=== PATIENT | female | born 1950 ===

== ENCOUNTER 2016-08-19 17:26 | Emergency (ER) | payer OTHER ==
[2016-08-19 17:36] VITALS: BP 140/88; PULSE 68; RESP 20; TEMP 98.5; O2SAT 98
[2016-08-19] MEDS ORDERED: Sodium Chloride 0.9% 1,000 ML IV STA (17:43)
--- NOTE | 2016-08-19 17:46 | ED PDOC ---
HPI: General Adult Time Seen by Provider: 08/19/16 17:44 Chief Complaint (Nursing): Abnormal Skin Integrity Chief Complaint (Provider): weakness History Per: Patient (66 y/o female h/o DM here for evaluation of shaking/ possible hypothermia. Patient was caught in rain and sought halfway in [place]. Was noted shivering and feeling unwell. Patient states symptoms began only after in AC room. Denies any chest pain/abdominal pain. Has had no fever/chills/uri/cough prior to episode today.) Past Medical History Reviewed: Historical Data, Nursing Documentation, Vital Signs Vital Signs: Last Vital Signs Temp 98.5 F 08/19/16 17:33 Pulse 68 08/19/16 17:33 Resp 20 08/19/16 17:33 BP 140/88 08/19/16 17:33 Pulse Ox 98 08/19/16 17:46 - Medical History PMH: Diabetes, Migraine - Family History Family History: States: No Known Family Hx - Home Medications Home Medications: Ambulatory Orders Medication Instructions Recorded Ondansetron ODT [Zofran ODT] 4 mg PO Q8 PRN #12 odt 05/01/15 - Allergies Allergies/Adverse Reactions: Allergies Allergy/AdvReac Type Severity Reaction Status Date / Time No Known Allergies Allergy Verified 08/19/16 17:32 Review of Systems ROS Statement: Except As Marked, All Systems Reviewed And Found Negative Physical Exam - Reviewed Nursing Documentation Reviewed: Yes Vital Signs Reviewed: Yes - Physical Exam Appears: Positive for: Well, Non-toxic, No Acute Distress Head Exam: Positive for: ATRAUMATIC, NORMAL INSPECTION, NORMOCEPHALIC Skin: Positive for: Normal Color, Warm, DRY Eye Exam: Positive for: EOMI, Normal appearance, PERRL ENT: Positive for: Normal ENT Inspection Neck: Positive for: Normal, Painless ROM Cardiovascular/Chest: Positive for: Regular Rate, Rhythm Respiratory: Positive for: CNT, Normal Breath Sounds Gastrointestinal/Abdominal: Positive for: Normal Exam, Bowel Sounds, Soft Back: Positive for: Normal Inspection Extremity: Positive for: Normal ROM Neurologic/Psych: Positive for: Alert, Oriented - Laboratory Results Result Diagrams: 08/19/16 18:53 08/19/16 18:53 - ECG O2 Sat by Pulse Oximetry: 98 - Progress ED Course And Treament: Rectal temp 99.0 Warm blankets/wet clothes removed. BS 345 NS 1 liter administered Disposition - Clinical Impression Clinical Impression: Hyperglycemia - Patient ED Disposition Is Patient to be Admitted: Transfer of Care - Disposition Disposition: Transfer of Care Disposition Time: 20:07 Condition: FAIR Instructions: Diabetic Hyperglycemia (ED) Print Language: TAJIK Patient Signed Over To: Micaela Shane Handoff Comments: pending repeat accucheck after insulin
[2016-08-19 19:01] LABS: BASO # 0.1 K/uL (0.0-0.2); BASO % 1.1 % (0.0-2.0); EOS # 0.2 K/uL (0.0-0.7); EOS % 2.7 % (0.0-4.0); HEMATOCRIT 38.5 % (34.0-47.0); LYMPH # 2.8 K/uL (1.0-4.3); LYMPH % 33.3 % (20.0-40.0); MEAN CELL VOLUME 94.1 fl (81.0-99.0); MEAN CORPUSCULAR HEMOGLOBIN 31.2 pg (27.0-31.0); MEAN CORPUSCULAR HGB CONC 33.2 g/dL (33.0-37.0); MEAN PLATELET VOLUME 9.1 fl (7.2-11.7); MONO # 1.2 K/uL (0.0-0.8); MONO % 14.7 % (0.0-10.0); NEUT % 48.2 % (50.0-75.0); NRBC % 0.1 % (0.0-0.0); RED CELL DISTRIBUTION WIDTH 13.3 % (11.5-14.5); WHITE BLOOD COUNT 8.4 K/uL (4.8-10.8)
[2016-08-19 19:10] LABS: ALB/GLOB RATIO 1.3 (1.0-2.1); ALKALINE PHOSPHATASE 120 U/L (38-126); ALT/SGPT 36 U/L (9-52); AST/SGOT 27 U/L (14-36); BILIRUBIN,TOTAL 0.4 mg/dl (0.2-1.3); BLOOD UREA NITROGEN 22 mg/dl (7-17); CALCIUM 9.1 mg/dL (8.4-10.2); CARBON DIOXIDE 28 mmol/L (22-30); CHLORIDE 102 mmol/L (98-107); GFR AFRICAN-AMERICAN > 60; GLUCOSE,RANDOM 305 mg/dL (65-105); POTASSIUM 4.3 MMOL/L (3.6-5.0); SODIUM 139 mmol/l (132-148); TOTAL PROTEIN 7.1 G/DL (6.3-8.2)
[2016-08-19 19:27] LABS: RBC URINE 1 /hpf (0-3); URINE BILIRUBIN NEGATIVE (NEGATIVE); URINE BLOOD NEGATIVE (NEGATIVE); URINE COLOR YELLOW (YELLOW); URINE GLUCOSE (UA) >=500 mg/dL (Normal); URINE KETONE NEGATIVE (NEGATIVE); URINE LEUKOCYTE ESTERASE NEG Leu/uL (Negative); URINE PROTEIN NEGATIVE (NEGATIVE); URINE UROBILINOGEN 0.2-1.0 mg/dL (0.2-1.0); WBC URINE 1 /hpf (0-5)
[2016-08-19] MEDS ORDERED: Insulin Regular 100 units/ml IVP ONE (20:07)
[2016-08-19] MEDS ORDERED: Insulin Regular 100 units/ml ONE (20:08)
--- NOTE | 2016-08-19 21:14 | ED PDOC ---
- Laboratory Results Result Diagrams: 08/19/16 18:53 08/19/16 18:53 - ECG O2 Sat by Pulse Oximetry: 98 - Progress ED Course And Treament: Case endorsed to expert medical writer from Demetrius PETER pending repeat accucheck after IV fluids , IV insulin Repeat accucheck 286. Patient admits to improvement of symptoms since arrival to ED. Patient discharged with instructions to follow up PMD 2-3 days. Return to ED for worsening/concerning symptoms. Disposition - Clinical Impression Clinical Impression: Hyperglycemia - POA Present On Arrival: None - Disposition Disposition: Routine/Home Disposition Time: 21:15 Condition: IMPROVED Instructions: Diabetic Hyperglycemia (ED) Print Language: ARABIC
--- NOTE | 2016-08-19 23:18 | CARD ---
APPROVED REPORT EKG Measurement Heart [id number] <Conclusion> Poor data quality, interpretation may be adversely affected Sinus bradycardia Otherwise normal ECG
== END 2016-08-19 20:02 | disposition home or self-care (01) ==
LOC: H.ER 17:26
DX: R73.9 Hyperglycemia, unspecified (principal); E11.9 Type 2 diabetes mellitus without complications

== ENCOUNTER 2016-11-10 11:36 | Observation (INO) | payer OTHER ==
[2016-11-10 11:55] VITALS: BMI 21.7
--- NOTE | 2016-11-10 12:40 | ED PDOC ---
Upper Extremity Pain/Injury Time Seen by Provider: 11/10/16 11:36 Chief Complaint (Nursing): Abnormal Skin Integrity Chief Complaint (Provider): Abnormal Skin Integrity History Per: Patient History/Exam Limitations: no limitations Onset/Duration Of Symptoms: Mins (prior to arrival) Current Symptoms Are (Timing): Still Present Additional Complaint(s): Drake Mccray is a 66 year old female, right-hand dominant, who presents to the emergency department for an evaluation of left hand injury status post puncture by needle of sewing machine prior to arrival. Patient denied any pain or active bleeding but concerned because of deep penetration of needle. Tetanus vaccinations are not up-to-date. PMD: Alphonse Ramirez MD Past Medical History Reviewed: Historical Data, Nursing Documentation, Vital Signs Vital Signs: Last Vital Signs Temp 97.6 F 11/10/16 11:53 Pulse 64 11/10/16 11:53 Resp 16 11/10/16 11:53 BP 131/76 11/10/16 11:53 Pulse Ox 98 11/10/16 11:53 - Medical History PMH: Diabetes, Migraine - Family History Family History: States: Unknown Family Hx - Social History Current smoker - smoking cessation education provided: No Alcohol: None Drugs: Denies - Home Medications Home Medications: Ambulatory Orders Medication Instructions Recorded Ondansetron ODT [Zofran ODT] 4 mg PO Q8 PRN #12 odt 05/01/15 Dicloxacillin [Dynapen] 1 tab PO QID #20 cap 11/10/16 - Allergies Allergies/Adverse Reactions: Allergies Allergy/AdvReac Type Severity Reaction Status Date / Time No Known Allergies Allergy Verified 11/10/16 12:03 Review of Systems ROS Statement: Except As Marked, All Systems Reviewed And Found Negative Musculoskeletal: Negative for: Hand Pain, Other (active bleeding) Skin: Positive for: Other (right hand puncture) Physical Exam - Reviewed Nursing Documentation Reviewed: Yes Vital Signs Reviewed: Yes - Physical Exam Appears: Positive for: Well, Non-toxic, No Acute Distress Head Exam: Positive for: ATRAUMATIC, NORMAL INSPECTION, NORMOCEPHALIC Cardiovascular/Chest: Positive for: Regular Rate, Rhythm Respiratory: Positive for: Normal Breath Sounds. Negative for: Decreased Breath Sounds, Respiratory Distress Extremity: Positive for: Normal ROM (right hand, all digits), Other (small right hand puncture wound). Negative for: Tenderness, Swelling Neurologic/Psych: Positive for: Alert, sleeper cutter II-XII, Oriented - Laboratory Results Result Diagrams: 11/10/16 13:50 11/10/16 13:50 - ECG O2 Sat by Pulse Oximetry: 98 (RA) Pulse Ox Interpretation: Normal - Progress ED Course And Treament: TDAP 0.5 ML IM X 1 DOSE HAND XRY: NO ACUTE FX CALLED TO BEDSIDE FOR NEAR SYNCOPE. PATIENT NOTES LEFT ARM ACHY SENSATION PULSE RATE NOTED 43 EKG: SINUS BRADYCARDIA 52BPM NO ECTOPY; NO ACUTE CHANGES HEAD CT: NAD CXR: NAD NS 1 LITER ZOFRAN 4 MG IV X 1 DOSE ARM PAIN RESOLVED. IN ED. D/W COMPUTER LAB ASSISTANT FOR ADMISSION OBSERVATION Medical Decision Making Medical Decision Making: Initial Impression: Left hand injury Initial Plan: * Adacel 0.5ml * Xray hand (left) Time: 1302 --Xray hand FINDINGS: BONES: Normal. No fracture. JOINTS: Normal. No osteoarthritic changes. SOFT TISSUES: Normal. OTHER FINDINGS: None. IMPRESSION: Normal left hand radiographs. Time: 1305 --Upon discharge, patient stated she feels dizzy and "might pass out". Reported vomiting this morning and general sickness. --EKG and Accucheck ordered. Time: 1315 --Accu-chek: 145 --Ordered: * CT head without contrast * CMP * Magnesium * Troponin I * CBC * CXR * NS 1,000ml IV per 500mls/hr * Zofran 4mg IVP * Urinalysis Scribe Attestation: Documented by Letty Noble, acting as a scribe for Johnna Romo PA-C. Provider Scribe Attestation: All medical record entries made by the Scribe were at my direction and personally dictated by me. I have reviewed the chart and agree that the record accurately reflects my personal performance of the history, physical exam, medical decision making, and the department course for this patient. I have also personally directed, reviewed, and agree with the discharge instructions and disposition. Disposition - Clinical Impression Clinical Impression: Puncture wound, Symptomatic bradycardia - Patient ED Disposition Is Patient to be Admitted: Yes Counseled Patient/Family Regarding: Studies Performed, Diagnosis, Rx Given - Disposition Disposition Time: 16:48 Condition: FAIR Prescriptions: Dicloxacillin [Dynapen] 1 tab PO QID #20 cap Instructions: Puncture Wound (ED), Bradycardia (ED), Near Syncope (ED) Forms: [facility] (Urdu)
--- NOTE | 2016-11-10 13:03 | RAD ---
PROCEDURE: Left Hand Radiographs. HISTORY: hand injury COMPARISON: None. FINDINGS: BONES: Normal. No fracture. JOINTS: Normal. No osteoarthritic changes. SOFT TISSUES: Normal. OTHER FINDINGS: None. IMPRESSION: Normal left hand radiographs.
[2016-11-10] MEDS ORDERED: Sodium Chloride 0.9% 1,000 ML IV STA (13:17)
[2016-11-10 13:57] LABS: BASO # 0.1 K/uL (0.0-0.2); BASO % 0.8 % (0.0-2.0); EOS # 0.1 K/uL (0.0-0.7); EOS % 1.5 % (0.0-4.0); HEMATOCRIT 42.5 % (34.0-47.0); LYMPH # 2.5 K/uL (1.0-4.3); LYMPH % 36.7 % (20.0-40.0); MEAN CELL VOLUME 94.1 fl (81.0-99.0); MEAN CORPUSCULAR HEMOGLOBIN 31.3 pg (27.0-31.0); MEAN CORPUSCULAR HGB CONC 33.2 g/dL (33.0-37.0); MEAN PLATELET VOLUME 8.6 fl (7.2-11.7); MONO # 0.8 K/uL (0.0-0.8); MONO % 11.1 % (0.0-10.0); NEUT # 3.5 K/uL (1.8-7.0); NEUT % 49.9 % (50.0-75.0); NRBC % 0.1 % (0.0-0.0); RED CELL DISTRIBUTION WIDTH 13.2 % (11.5-14.5); WHITE BLOOD COUNT 6.9 K/uL (4.8-10.8)
--- NOTE | 2016-11-10 14:10 | CT ---
PROCEDURE: CT HEAD WITHOUT CONTRAST. HISTORY: near syncope COMPARISON: None available. TECHNIQUE: Axial computed tomography images were obtained through the head/brain without intravenous contrast. Radiation dose: Total exam DLP = 804.50 mGy-cm. This CT exam was performed using one or more of the following dose reduction techniques: Automated exposure control, adjustment of the mA and/or kV according to patient size, and/or use of iterative reconstruction technique. FINDINGS: HEMORRHAGE: No intracranial hemorrhage. BRAIN: No mass effect or edema. No atrophy or chronic microvascular ischemic changes. VENTRICLES: Unremarkable. No hydrocephalus. CALVARIUM: Unremarkable. PARANASAL SINUSES: Unremarkable as visualized. No significant inflammatory changes. MASTOID AIR CELLS: Unremarkable as visualized. No inflammatory changes. OTHER FINDINGS: None. IMPRESSION: No acute intracranial abnormalities. No significant findings to account for the clinical presentation.
--- NOTE | 2016-11-10 14:11 | RAD ---
HISTORY: Left hand pain. Portable study 13:30. COMPARISON: 11/10/2012 FINDINGS: LUNGS: No active pulmonary disease. PLEURA: No significant pleural effusion identified, no pneumothorax apparent. CARDIOVASCULAR: No radiographic findings to suggest acute or significant cardiovascular disease. OSSEOUS STRUCTURES: No significant abnormalities. VISUALIZED UPPER ABDOMEN: Normal. OTHER FINDINGS: None. IMPRESSION: No active disease. No significant interval change compared to the prior examination(s).
[2016-11-10 14:18] LABS: ALB/GLOB RATIO 1.4 (1.0-2.1); ALKALINE PHOSPHATASE 93 U/L (38-126); ALT/SGPT 30 U/L (9-52); AST/SGOT 32 U/L (14-36); BLOOD UREA NITROGEN 17 mg/dl (7-17); CALCIUM 10.4 mg/dL (8.4-10.2); CARBON DIOXIDE 31 mmol/L (22-30); CHLORIDE 101 mmol/L (98-107); GFR AFRICAN-AMERICAN > 60; GLUCOSE,RANDOM 143 mg/dL (65-105); MAGNESIUM 1.9 MG/DL (1.6-2.3); POTASSIUM 4.1 MMOL/L (3.6-5.0); SODIUM 142 mmol/l (132-148); TOTAL PROTEIN 8.3 G/DL (6.3-8.2)
[2016-11-10 18:10] LABS: RBC URINE < 1 /hpf (0-3); URINE BILIRUBIN NEGATIVE (NEGATIVE); URINE BLOOD NEGATIVE (NEGATIVE); URINE COLOR YELLOW (YELLOW); URINE GLUCOSE (UA) NEG (Normal); URINE KETONE NEGATIVE (NEGATIVE); URINE LEUKOCYTE ESTERASE NEG Leu/uL (Negative); URINE PROTEIN NEGATIVE (NEGATIVE); URINE UROBILINOGEN 0.2-1.0 mg/dL (0.2-1.0)
--- NOTE | 2016-11-10 18:10 | CP.PCM.HP ---
History of Present Illness - History of Present Illness History of Present Illness: 66 yr old F with PMHx of NIDDM Type 2, Depression, chronic left knee/left hip and low back pain, vertigo and recent H. Pylori infection presented to ED with complaint intermittent dizziness throughout the day and for the past couple of months intermittently. The dizziness occurs when she stands up too fast from a seated position or when she moves too fast. Patient reports she feels her head spins around during these episodes, and they resolve with rest. Denies chest pain, sweating, nausea, fevers, chills, visual changes, falls or weakness. Had one episode of vomiting this AM immediately after breakfast. Only took her Metformin today. Started tx for H. Pylori infection 3 days ago. Reports compliance with her medications, does not have PRN medication for vertigo at home. Patient also had complaint of a needle piercing her left palm while attempting to use the sewing machine this AM. PMD: Dr. Ramirez Specialists: Dr. Munson-; Audrey Aranda-[facility] PMHx: NIDDM Type 2, Depression, chronic left knee/left hip and low back pain, vertigo and recent H. Pylori infection SurgHx: total abd hysterectomy SocHx: denies Etoh, drugs or smoking FMHx: mother had HTN, of [place] at 98yrs old; Father had HTN- of [place] at 80 yrs old Meds: Glipizide 5mg PO QD, Metformin 100mg PO BID, Basaglar Kwikpen insulin 16units QHS, Citalopram 10mg PO QD, Clarithromycin 500mg PO Q12, Amoxicillin 500mg PO Q12, Prilosec 20mg PO BID Allergies: NKDA ED Course: BP 131/76 mmHg, P64, R16, O2 100% on room air, T 97.6F -in ED HR oscillated between 40's - 80's, patients' intermittent dizziness persisted -EKG: sinus bradycardia , HR 52 -CXR wnl, Head CT wnl, Left hand xray wnl -Labs: POC glucose 106 mg/dl, CBC wnl, CMP HCO3 31, rest wnl, troponin negative x 1, UA negative -ED tx: 1L NS bolus, 4mg Zofran IV once, Tdap booster Present on Admission - Present on Admission Any Indicators Present on Admission: Yes History of DVT/PE: No History of Uncontrolled Diabetes: Yes Urinary Catheter: No Decubitus Ulcer Present: No Review of Systems - Review of Systems All systems: reviewed and no additional remarkable complaints except (for what is mentioned in the HPI) Past Patient History - Past Social History Alcohol: None Drugs: Denies - NEUROLOGICAL Hx Migraine: Yes - ENDOCRINE/METABOLIC Hx Diabetes Mellitus Type 2: Yes - PSYCHIATRIC Hx Substance Use: No - ANESTHESIA Hx Anesthesia: No Meds Allergies/Adverse Reactions: Allergies Allergy/AdvReac Type Severity Reaction Status Date / Time No Known Allergies Allergy Verified 11/10/16 12:03 Physical Exam - Constitutional Appears: No Acute Distress - Head Exam Head Exam: ATRAUMATIC, NORMOCEPHALIC - Eye Exam Eye Exam: EOMI, PERRL - ENT Exam ENT Exam: Mucous Membranes Moist - Neck Exam Neck exam: Positive for: Full Rom. Negative for: Lymphadenopathy, Meningismus - Respiratory Exam Respiratory Exam: Clear to Auscultation Bilateral, NORMAL BREATHING PATTERN - Cardiovascular Exam Cardiovascular Exam: REGULAR RHYTHM, +S1, +S2 - GI/Abdominal Exam GI & Abdominal Exam: Normal Bowel Sounds, Soft. absent: Tenderness - Extremities Exam Extremities exam: Positive for: full ROM, normal capillary refill, pedal pulses present. Negative for: pedal edema - Back Exam Back exam: absent: CVA tenderness (L), CVA tenderness (R) - Neurological Exam Neurological exam: Alert, CN II-XII Intact, Oriented x3 (positive right- Benson Leon Dover maneuver ) - Skin Skin Exam: Dry, Normal Color, Warm Results - Vital Signs Recent Vital Signs: Last Vital Signs Temp 98 F 11/10/16 18:00 Pulse 82 11/10/16 18:00 Resp 16 11/10/16 18:00 BP 116/68 11/10/16 18:00 Pulse Ox 99 11/10/16 18:00 - Labs Result Diagrams: 11/10/16 13:50 11/10/16 13:50 Assessment & Plan - Assessment and Plan (Free Text) Assessment: 66 yr old F with PMHx of NIDDM Type 2, Depression, chronic left knee/left hip and low back pain, vertigo and recent H. Pylori infection, admitted for recurrent intermittent dizziness and bradycardia. Plan: 1. Recurrent Intermittent Dizziness -Symptomatic Bradycardia vs Benign Positional Paroxysmal Vertigo -EKG: sinus bradycardia -CT head wnl, CXR wnl, troponin neg x 1, CBC wnl, CMP HCO3 31-rest wnl -admit to tele -f/u EKG in AM, CBC, CMP, TSH, folate, B12 -f/u Cardiology consult-Dr. Chang -consider Neurology consult 2. NIDDM Type 2- uncontrolled -HbA1c 9.8 on 11/01/16 -f/u lipid panel -continue home med Glipizide 5mg PO QD, hold Metformin 1000mg PO BID -regular Insulin low dose coverage scale ACHS -hypoglycemia protocol 3. Depression -chronic, controlled -continue with home med Citalopram 10mg PO QD 4. H. Pylori infection -stool positive 10/08/16, pt started tx 3 days ago -continue home med: Clarithromycin 500mg PO Q12, Amoxicillin 500mg PO Q12, Prilosec 20mg PO BID 5. DVT prophylaxis -Lovenox 40mg SC QD, SCD's PRN - Date & Time Date: 11/10/16 Time: 17:00
[2016-11-10] MEDS ORDERED: Glucagon Recombinant 1 mg Inj IM PRN (20:23)
[2016-11-10] MEDS ORDERED: Dextrose 50% SYRINGE Inj (50 ml) IV PRN (20:23)
[2016-11-10] MEDS ORDERED: Pantoprazole 40 mg EC Tab PO SCH (20:45)
[2016-11-10] MEDS: Pantoprazole 40 mg EC Tab PO SCH (21:30)
[2016-11-10] MEDS: Insulin Regular 100 units/ml SC SCH (21:40)
[2016-11-11 06:26] LABS: MEAN CELL VOLUME 94.1 fl (81.0-99.0); MEAN CORPUSCULAR HEMOGLOBIN 31.1 pg (27.0-31.0); MEAN CORPUSCULAR HGB CONC 33.1 g/dL (33.0-37.0); WHITE BLOOD COUNT 9.1 K/uL (4.8-10.8)
[2016-11-11] MEDS ORDERED: Pneumococcal 23-Valent Vaccine IM ONE (06:30)
[2016-11-11 06:36] LABS: BLOOD UREA NITROGEN 18 mg/dl (7-17); CALCIUM 9.7 mg/dL (8.4-10.2); CARBON DIOXIDE 28 mmol/L (22-30); CHLORIDE 102 mmol/L (98-107); CHOLESTEROL 125 mg/dL (0-199); GFR AFRICAN-AMERICAN > 60; GLUCOSE,RANDOM 131 mg/dL (65-105); POTASSIUM 4.8 MMOL/L (3.6-5.0); SODIUM 140 mmol/l (132-148)
[2016-11-11 07:07] LABS: THYROID STIMULATING HORMONE 3.51 mIU/ML (0.46-4.68)
--- NOTE | 2016-11-11 08:01 | CARD ---
APPROVED REPORT EKG Measurement Heart [id number] <Conclusion> Sinus bradycardia Otherwise normal ECG
[2016-11-11] MEDS: Pantoprazole 40 mg EC Tab PO SCH ×2 (08:58→17:37)
[2016-11-11] MEDS ORDERED: Enoxaparin 40 mg Syringe SC SCH (09:00)
[2016-11-11] MEDS: Insulin Regular 100 units/ml SC SCH ×3 (09:00→17:36)
--- NOTE | 2016-11-11 10:19 | CP.PCM.CON ---
History of Present Illness - History of Present Illness History of Present Illness: this 66- year-old female who has been a diabetic for over 30 years came to the emergency room after feeling dizzy following being struck in the left hand with a needle while trying to sew a garment. The patient describes having had lightheaded spells for number of months and these are particularly pronounced on abruptly standing up or abruptly moving. There has never been a syncopal episode. She denies any palpitations. She denies any chest pains or myocardial infarction or symptoms of congestive cardiac failure. She has never been a smoker and denies any history of hypertension. She denies any ringing in the ear or loss of hearing. Physical examination shows an elderly pleasant female who is comfortable while lying in bed. Review of her telemetry shows steady sinus rhythm at physiological rates, going down to mid 50s during sleep. Her blood pressure was 124/70 mmHg while lying down and did not show any orthostatic changes. Her blood pressure upon sitting up and standing up. Abruptly standing up did produce a mild sense of lightheadedness. Her apex was in the fifth space. The first and second heart sounds are normal. There was no murmur or gallop. Her pedal pulses were well felt. Her jugular venous pressure was not elevated and there was no edema hour low extremity. There were no carotid bruits. Her electrocardiogram showed sinus rhythm with a normal EKG pattern. Her lab data was noted. Impression:vertigo possibly secondary to vestibular dysfunction. No evidence of cardiovascular abnormality was detected. Past Patient History - Past Medical History & Family History Past Medical History?: Yes - Past Social History Smoking Status: Never Smoked - CARDIAC Hx Cardiac Disorders: No - PULMONARY Hx Respiratory Disorders: No - NEUROLOGICAL Hx Migraine: Yes - HEENT Hx HEENT Problems: Yes (cataract) Hx Cataracts: Yes - RENAL Hx Chronic Kidney Disease: No - ENDOCRINE/METABOLIC Hx Diabetes Mellitus Type 2: Yes - HEMATOLOGICAL/ONCOLOGICAL Hx Blood Disorders: No - INTEGUMENTARY Hx Dermatological Problems: No - MUSCULOSKELETAL/RHEUMATOLOGICAL Hx Musculoskeletal Disorders: No Hx Falls: No - GASTROINTESTINAL Other/Comment: H.Pylori infection - GENITOURINARY/GYNECOLOGICAL Hx Genitourinary Disorders: No - PSYCHIATRIC Hx Psychophysiologic Disorder: No Hx Substance Use: No - SURGICAL HISTORY Hx Surgeries: No Hx Hysterectomy: Yes - ANESTHESIA Hx Anesthesia: Yes Hx Anesthesia Reactions: No Meds Allergies/Adverse Reactions: Allergies Allergy/AdvReac Type Severity Reaction Status Date / Time No Known Allergies Allergy Verified 11/10/16 12:03 - Medications Medications: Current Medications Amoxicillin (Amoxil 500 Mg Cap) 500 mg PO Q12 [facility] Last Admin: 11/11/16 08:59 Dose: 500 mg Citalopram Hydrobromide (Celexa) 10 mg PO DAILY [facility] Last Admin: 11/11/16 08:59 Dose: 10 mg Clarithromycin (Biaxin Filmtab) 500 mg PO Q12 [facility] Last Admin: 11/11/16 08:58 Dose: 500 mg Dextrose (Dextrose 50% Inj) 0 ml IV STAT PRN; Protocol PRN Reason: Hyglycemia Protocol Dextrose (Glutose 15) 0 gm PO ONCE PRN; Protocol PRN Reason: Hypoglycemia Protocol Enoxaparin Sodium (Lovenox) 40 mg SC DAILY [facility] PRN Reason: Protocol Last Admin: 11/11/16 08:58 Dose: 40 mg Glipizide (Glucotrol) 5 mg PO ACB [facility] Last Admin: 11/11/16 08:59 Dose: 5 mg Glucagon (Glucagen Diagnostic Kit) 0 mg IM STAT PRN; Protocol PRN Reason: Hypoglycemia Protocol Insulin Human Regular (Humulin R) 0 units SC ACHS [facility] PRN Reason: Protocol Last Admin: 11/11/16 09:00 Dose: Not Given Pantoprazole Sodium (Protonix Ec Tab) 40 mg PO BID [facility] Last Admin: 11/11/16 08:58 Dose: 40 mg Results - Vital Signs Recent Vital Signs: Last Vital Signs Temp 97.9 F 11/11/16 08:00 Pulse 57 L 11/11/16 08:00 Resp 18 11/11/16 08:00 BP 110/69 11/11/16 08:00 Pulse Ox 99 11/11/16 08:00 - Labs Result Diagrams: 11/11/16 05:35 11/11/16 05:35 Labs: Laboratory Results - last 24 hr 11/10/16 11/10/16 11/10/16 18:05 19:20 21:38 WBC RBC Hgb Hct MCV MCH MCHC RDW Plt Count Sodium Potassium Chloride Carbon Dioxide Anion Gap BUN Creatinine Est GFR ( Amer) Est GFR (Non-Af Amer) POC Glucose (mg/dL) 268 H Random Glucose Calcium Triglycerides Cholesterol LDL Cholesterol Direct HDL Cholesterol Vitamin B12 438 TSH 3rd Generation Urine Color Yellow Urine Clarity Clear Urine pH 7.0 Ur Specific [place] 1.011 Urine Protein Negative Urine Glucose (UA) Neg Urine Ketones Negative Urine Blood Negative Urine Nitrate Negative Urine Bilirubin Negative Urine Urobilinogen 0.2-1.0 Ur Leukocyte Esterase Neg Urine RBC (Auto) < 1 Ur Squamous Epith Cells 1 11/11/16 11/11/16 11/11/16 05:07 05:35 05:35 WBC 9.1 RBC 4.25 Hgb 13.2 Hct 40.0 MCV 94.1 MCH 31.1 H MCHC 33.1 RDW 13.0 Plt Count 217 Sodium 140 Potassium 4.8 Chloride 102 Carbon Dioxide 28 Anion Gap 15 BUN 18 H Creatinine 0.9 Est GFR ( Amer) > 60 Est GFR (Non-Af Amer) > 60 POC Glucose (mg/dL) 123 H Random Glucose 131 H Calcium 9.7 Triglycerides 74 D Cholesterol 125 LDL Cholesterol Direct 45 HDL Cholesterol 55 Vitamin B12 TSH 3rd Generation 3.51 Urine Color Urine Clarity Urine pH Ur Specific [place] Urine Protein Urine Glucose (UA) Urine Ketones Urine Blood Urine Nitrate Urine Bilirubin Urine Urobilinogen Ur Leukocyte Esterase Urine RBC (Auto) Ur Squamous Epith Cells
[2016-11-11 12:13] VITALS: O2SAT 98
[2016-11-11 12:25] LABS: FOLATE > 20.0 ng/mL
[2016-11-11 15:49] VITALS: BP 124/73; PULSE 66; RESP 20; TEMP 98.4
--- NOTE | 2016-11-11 16:21 | CP.PCM.DIS ---
Provider - Provider Date of Admission: 11/10/16 17:33 Attending physician: Sylvia Parr MD Primary care physician: PMD: Dr Ramirez. Consults: Cardiology: Dr Laron hCang. Time Spent in preparation of Discharge (in minutes): 30 Diagnosis - Discharge Diagnosis (1) Dizziness Status: Acute Hospital Course - Lab Results Lab Results: Most Recent Lab Values WBC 9.1 K/uL (4.8-10.8) 11/11/16 05:35 RBC 4.25 Mil/uL (3.80-5.20) 11/11/16 05:35 Hgb 13.2 g/dL (12.0-16.0) 11/11/16 05:35 Hct 40.0 % (34.0-47.0) 11/11/16 05:35 MCV 94.1 fl (81.0-99.0) 11/11/16 05:35 MCH 31.1 pg (27.0-31.0) H 11/11/16 05:35 MCHC 33.1 g/dL (33.0-37.0) 11/11/16 05:35 RDW 13.0 % (11.5-14.5) 11/11/16 05:35 Plt Count 217 K/uL (130-400) 11/11/16 05:35 MPV 8.6 fl (7.2-11.7) 11/10/16 13:50 Neut % (Auto) 49.9 % (50.0-75.0) L 11/10/16 13:50 Lymph % (Auto) 36.7 % (20.0-40.0) 11/10/16 13:50 [facility] % (Auto) 11.1 % (0.0-10.0) H 11/10/16 13:50 Eos % (Auto) 1.5 % (0.0-4.0) 11/10/16 13:50 Baso % (Auto) 0.8 % (0.0-2.0) 11/10/16 13:50 Neut # 3.5 K/uL (1.8-7.0) 11/10/16 13:50 Lymph # 2.5 K/uL (1.0-4.3) 11/10/16 13:50 [facility] # 0.8 K/uL (0.0-0.8) 11/10/16 13:50 Eos # 0.1 K/uL (0.0-0.7) 11/10/16 13:50 Baso # 0.1 K/uL (0.0-0.2) 11/10/16 13:50 Sodium 140 mmol/l (132-148) 11/11/16 05:35 Potassium 4.8 MMOL/L (3.6-5.0) 11/11/16 05:35 Chloride 102 mmol/L (98-107) 11/11/16 05:35 Carbon Dioxide 28 mmol/L (22-30) 11/11/16 05:35 Anion Gap 15 (10-20) 11/11/16 05:35 BUN 18 mg/dl (7-17) H 11/11/16 05:35 Creatinine 0.9 mg/dL (0.7-1.2) 11/11/16 05:35 Est GFR ( Amer) > 60 11/11/16 05:35 Est GFR (Non-Af Amer) > 60 11/11/16 05:35 POC Glucose (mg/dL) 204 mg/dL (65-110) H 11/11/16 11:01 Random Glucose 131 mg/dL (65-105) H 11/11/16 05:35 Calcium 9.7 mg/dL (8.4-10.2) 11/11/16 05:35 Magnesium 1.9 MG/DL (1.6-2.3) 11/10/16 13:50 Total Bilirubin 1.0 mg/dl (0.2-1.3) 11/10/16 13:50 AST 32 U/L (14-36) 11/10/16 13:50 ALT 30 U/L (9-52) 11/10/16 13:50 Alkaline Phosphatase 93 U/L (38-126) 11/10/16 13:50 Troponin I < 0.0120 ng/mL (0.00-0.120) 11/10/16 13:50 Total Protein 8.3 G/DL (6.3-8.2) H 11/10/16 13:50 Albumin 4.8 g/dL (3.5-5.0) 11/10/16 13:50 Globulin 3.5 gm/dL (2.2-3.9) 11/10/16 13:50 Albumin/Globulin Ratio 1.4 (1.0-2.1) 11/10/16 13:50 Triglycerides 74 mg/DL (0-149) D 11/11/16 05:35 Cholesterol 125 mg/dL (0-199) 11/11/16 05:35 LDL Cholesterol Direct 45 mg/dL (0-129) 11/11/16 05:35 HDL Cholesterol 55 MG/DL (30-70) 11/11/16 05:35 Vitamin B12 438 pg/mL (239-931) 11/10/16 19:20 Folate > 20.0 ng/mL 11/10/16 19:20 TSH 3rd Generation 3.51 mIU/ML (0.46-4.68) 11/11/16 05:35 Urine Color Yellow (YELLOW) 11/10/16 18:05 Urine Clarity Clear (Clear) 11/10/16 18:05 Urine pH 7.0 (5.0-8.0) 11/10/16 18:05 Ur Specific Holmes 1.011 (1.003-1.030) 11/10/16 18:05 Urine Protein Negative mg/dL (NEGATIVE) 11/10/16 18:05 Urine Glucose (UA) Neg mg/dL (Normal) 11/10/16 18:05 Urine Ketones Negative mg/dL (NEGATIVE) 11/10/16 18:05 Urine Blood Negative (NEGATIVE) 11/10/16 18:05 Urine Nitrate Negative (NEGATIVE) 11/10/16 18:05 Urine Bilirubin Negative (NEGATIVE) 11/10/16 18:05 Urine Urobilinogen 0.2-1.0 mg/dL (0.2-1.0) 11/10/16 18:05 Ur Leukocyte Esterase Neg Kennedy/uL (Negative) 11/10/16 18:05 Urine RBC (Auto) < 1 /hpf (0-3) 11/10/16 18:05 Ur Squamous Epith Cells 1 /hpf (0-5) 11/10/16 18:05 - Hospital Course Hospital Course: 66 y/o F with a PMHx od DM 2 and currently treated H. pylori infection, was admitted due to persistent dizziness and bradycardia. Positive [place] maneuver on right side. EKG showed sinus bradycardia. Head CT and CXR were unremarkable. 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 Home medications: Glipizide 5mg PO QD, Metformin 100mg PO BID, Basaglar Kwikpen insulin 16units QHS, Citalopram 10mg PO QD, Clarithromycin 500mg PO Q12, Amoxicillin 500mg PO Q12, Prilosec 20mg PO BID Meclizine 12.5 mg PO daily PRN, was starte and prescribed. Pt discharged stable with improved symptomatology. - Date & Time of H&P Date of H&P: 11/10/16 Time of H&P: 18:10 Discharge Exam - Head Exam Head Exam: ATRAUMATIC, NORMOCEPHALIC - Eye Exam Eye Exam: EOMI, Normal appearance - Neck Exam Neck exam: Full Rom - Respiratory Exam Respiratory Exam: Clear to PA & Lateral, NORMAL BREATHING PATTERN - Cardiovascular Exam Cardiovascular Exam: REGULAR RHYTHM, +S1, +S2 Discharge Plan - Discharge Medications Prescriptions: Meclizine [Antivert] 12.5 mg PO DAILY PRN #15 tab PRN Reason: Dizziness - Follow Up Plan Condition: FAIR Disposition: HOME/ ROUTINE Instructions: Puncture Wound (ED), Bradycardia (ED), Near Syncope (ED) Additional Instructions: -Take 1 tab Meclizine by mouth once a day when symptomatic. -Avoid rapid head movements, take appropriate time to change position from siting to standing and vice-versa. -Return to ER if persistent dizziness, chest pain, severe shortness of breath or palpitations. -F/U with PMD, Dr Duong, at [facility] for further management and evaluation. Pt was instructed to set up an appointment in 2 weeks during her last visit at the clinic.
--- NOTE | 2016-11-12 09:02 | CARD ---
APPROVED REPORT EKG Measurement Heart [id number] <Conclusion> Normal sinus rhythm Normal ECG
== END 2016-11-11 17:40 | disposition home or self-care (01) ==
LOC: H.ER 11:36 → H.ERHOLD 17:33 → H.TEL 18:56
PROVIDERS: ADMIT Family Medicine Geriatric Medicine; ATTEND Family Medicine Geriatric Medicine
DX: H81.90 Unspecified disorder of vestibular function, unspecified ear (principal); R42 Dizziness and giddiness; B96.81 Helicobacter pylori [H. pylori] as the cause of diseases classified elsewhere; E11.9 Type 2 diabetes mellitus without complications; Z79.899 Other long term (current) drug therapy; Z82.49 Family history of ischemic heart disease and other diseases of the circulatory system; Z90.710 Acquired absence of both cervix and uterus; R00.1 Bradycardia, unspecified; W26.8XXA Contact with other sharp object(s), not elsewhere classified, initial encounter; Y93.D2 Activity, sewing; F32.89 Other specified depressive episodes; M25.552 Pain in left hip; M54.5 Low back pain; Z23 Encounter for immunization
CPT/HCPCS: 36415; 70450; 71010; 73130; 80048; 80053; 80061; 81003; 82607; 82746; 82948; 83735; 84443; 84484; 85025; 85027; 90471; 90715; 90732; 93005; 96360; 96374; 97110; 97161; 99285; G0378; G8978; G8979; G8980; J1650; J2405; J7040

== ENCOUNTER 2018-05-21 09:25 | Emergency (ER) | payer OTHER ==
[2018-05-21 09:26] VITALS: BMI 23.9
[2018-05-21] MEDS ORDERED: Sodium Chloride 0.9% 500 ML IV STA (10:24)
--- NOTE | 2018-05-21 10:33 | ED PDOC ---
History of Present Illness History of Present Illness: Nicci [id number] 68 y/o F with PMH of DM-II, Vertigo and H.pylori comes to the ER c/0 one day hx of severe generalized body aches, headaches, dizziness, sore throat, sweating, chills, and subjective fever. Patient reports + sick contact at home with flu. + SOB on exertion, denies chest pain, Abdominal pain, n/v, diarrhea, blurred vision or dysuria. PMD: Dr. March Specialists: Dr. Munson-GI; Audrey CuetoOiqqd-Cliqpfj-TDR PMHx: NIDDM Type 2, Depression, chronic left knee/left hip and low back pain, vertigo and recent H. Pylori infection SurgHx: total abd hysterectomy SocHx: denies Etoh, drugs or smoking FMHx: mother had HTN, of [place] at 98yrs old; Father had HTN- of [place] at 80 yrs old Meds: Glipizide 5mg PO QD, Metformin 100mg PO BID, Basaglar Kwikpen insulin 16units QHS, Citalopram 10mg PO QD, Clarithromycin 500mg PO Q12, Amoxicillin 500mg PO Q12, Prilosec 20mg PO BID Allergies: NKDA HPI: Influenza Time Seen by Provider: 05/21/18 09:45 Past Medical History Vital Signs: Last Vital Signs Temp 100.2 F H 05/21/18 09:26 Pulse 60 05/21/18 09:26 Resp 18 05/21/18 09:26 BP 133/68 05/21/18 09:26 Pulse Ox 99 05/21/18 09:26 - Medical History PMH: Diabetes, Hypercholesterolemia, Migraine Denies: Chronic Kidney Disease - Family History Family History: States: Unknown Family Hx - Home Medications Home Medications: Ambulatory Orders Medication Instructions Recorded metFORMIN [glucOPHAGE] 1,000 mg PO BID 11/10/16 Amoxicillin [Amoxil 500 mg Cap] 500 mg PO Q12 cap 11/11/16 Citalopram [celeXA] 10 mg PO DAILY tab 11/11/16 Clarithromycin [Biaxin Filmtab] 500 mg PO Q12 tab 11/11/16 GlipiZIDE [Glucotrol] 5 mg PO ACB tab 11/11/16 Meclizine [Antivert] 12.5 mg PO DAILY PRN #15 tab 11/11/16 Acetaminophen [Tylenol] 650 mg PO Q6H PRN 10 Days #30 05/21/18 capsule Oseltamivir Phosphate [Tamiflu] 75 mg PO BID 5 Days #10 capsule 05/21/18 Oseltamivir Phosphate [Tamiflu] 75 mg PO BID 5 Days #10 capsule 05/21/18 - Allergies Allergies/Adverse Reactions: Allergies Allergy/AdvReac Type Severity Reaction Status Date / Time No Known Allergies Allergy Verified 05/21/18 09:55 Review of Systems Constitutional: Positive for: Fever, Chills, Sweats, Weakness, Malaise Eyes: Negative for: Pain ENT: Positive for: Throat Pain. Negative for: Ear Pain, Nose Congestion, Mouth Pain, Mouth Swelling Cardiovascular: Negative for: Chest Pain, Palpitations, Orthopnea Respiratory: Negative for: Cough, Shortness of Breath, Hemoptysis Gastrointestinal: Negative for: Nausea, Vomiting, Abdominal Pain Genitourinary Female: Negative for: Dysuria, Frequency Musculoskeletal: Positive for: Other (Generalized body aches ) Skin: Negative for: Rash Neurological: Positive for: Weakness. Negative for: Numbness Psych: Negative for: Anxiety Physical Exam - Physical Exam Appears: Positive for: Uncomfortable Head Exam: Positive for: NORMAL INSPECTION Skin: Positive for: Normal Color Eye Exam: Positive for: Normal appearance ENT: Positive for: Normal ENT Inspection. Negative for: Pharyngeal Erythema, Tonsillar Exudate Neck: Positive for: Normal Cardiovascular/Chest: Positive for: Regular Rate, Rhythm. Negative for: Chest Non Tender Respiratory: Positive for: Normal Breath Sounds. Negative for: Decreased Breath Sounds, Accessory Muscle Use, Crackles Gastrointestinal/Abdominal: Positive for: Normal Exam, Soft. Negative for: Tenderness Back: Positive for: Normal Inspection. 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 Buchanan CBC: significant for WBC 13.7 CMP: WNL EKG: NSR CXR: No infiltration Patient understands and agrees with discharge Disposition - Clinical Impression Clinical Impression: Influenza-like symptoms - Patient ED Disposition Is Patient to be Admitted: No - Disposition Referrals: Ilana March MD [Staff Provider] - Disposition: Routine/Home Disposition Time: 12:12 Condition: FAIR Additional Instructions: Follow up with MD in 2-3 days Return to the ER if symptoms get worse Prescriptions: Acetaminophen [Tylenol] 650 mg PO Q6H PRN 10 Days #30 capsule PRN Reason: Pain, Moderate (4-7) Oseltamivir Phosphate [Tamiflu] 75 mg PO BID 5 Days #10 capsule Oseltamivir Phosphate [Tamiflu] 75 mg PO BID 5 Days #10 capsule Instructions: Flu, Adult (DC) Forms: In[employer] (Bengali)
[2018-05-21 11:08] LABS: BASO # 0.1 K/uL (0.0-0.2); BASO % 0.5 % (0.0-2.0); EOS # 0.1 K/uL (0.0-0.7); EOS % 0.4 % (0.0-4.0); HEMOGLOBIN 12.9 g/dL (12.0-16.0); LYMPH # 1.4 K/uL (1.0-4.3); LYMPH % 10.3 % (20.0-40.0); MEAN CELL VOLUME 93.3 fl (81.0-99.0); MEAN CORPUSCULAR HEMOGLOBIN 31.6 pg (27.0-31.0); MEAN CORPUSCULAR HGB CONC 33.8 g/dL (33.0-37.0); MEAN PLATELET VOLUME 8.6 fl (7.2-11.7); MONO # 1.3 K/uL (0.0-0.8); MONO % 9.7 % (0.0-10.0); NEUT # 10.8 K/uL (1.8-7.0); NEUT % 79.1 % (50.0-75.0); NRBC % 0.1 % (0.0-0.0); RBC 4.09 Mil/uL (3.80-5.20); RED CELL DISTRIBUTION WIDTH 13.1 % (11.5-14.5); WHITE BLOOD COUNT 13.7 K/uL (4.8-10.8)
[2018-05-21 11:22] LABS: BLOOD UREA NITROGEN 20 mg/dl (7-17); CALCIUM 9.6 mg/dL (8.4-10.2); GFR NON-AFRICAN AMERICAN > 60
--- NOTE | 2018-05-21 12:55 | RAD ---
Date of service: 05/21/2018 HISTORY: possible admission COMPARISON: 02/16/2018 FINDINGS: LUNGS: No active pulmonary disease. PLEURA: No significant pleural effusion identified, no pneumothorax apparent. CARDIOVASCULAR: No atherosclerotic calcification present Normal. OSSEOUS STRUCTURES: No significant abnormalities. VISUALIZED UPPER ABDOMEN: Normal. OTHER FINDINGS: None. IMPRESSION: No active disease. No significant interval change compared to the prior examination(s).
[2018-05-21 14:30] VITALS: BP 103/57; PULSE 59; RESP 19; TEMP 99.9; O2SAT 99
== END 2018-05-21 16:08 | disposition home or self-care (01) ==
LOC: H.ER 09:25
DX: J11.1 Influenza due to unidentified influenza virus with other respiratory manifestations (principal); E11.9 Type 2 diabetes mellitus without complications; E78.00 Pure hypercholesterolemia, unspecified; Z79.4 Long term (current) use of insulin
CPT/HCPCS: 71045; 80048; 82948; 85025; 99283; J7030

== ENCOUNTER 2018-05-25 10:02 | Emergency (ER) | payer MEDICARE, OTHER ==
[2018-05-25 10:05] VITALS: BMI 23.0
--- NOTE | 2018-05-25 10:59 | ED PDOC ---
HPI: Abdomen Time Seen by Provider: 05/25/18 10:40 Chief Complaint (Nursing): GI Problem Chief Complaint (Provider): vomiting History Per: Patient History/Exam Limitations: no limitations Onset/Duration Of Symptoms: Days Outside of [place] travel?: No Current Symptoms Are (Timing): Still Present Severity: Mild Pain Scale Rating Of: 5 Location Of Pain/Discomfort: Diffuse (diffuse abd discomfort ) Quality Of Discomfort: Aching Associated Symptoms: Vomiting, Chest Pain (reproducible on palpation ) Exacerbating Factors: Movement, Other (PO intake ) Alleviating Factors: None Additional History Per: Patient Additional Complaint(s): 68 y/o female with h/o DM type 2, vertigo and High Cholesterol presents to the ED with persistent nausea and vomiting since last week . She states she was seen in ED on for fever, throat pain, nausea and vomiting and dx with the flu sent home on Tylenol PRN and tamiflu which she has been taking. Pt reports fever and other associated symptoms have subsided but continues to have nausea and vomiting. Pt states she has not been able to eat or hold fluids down and now feels dehydrated and weak. Last subjective fever yesterday, denies dysuria, diarrhea and sob. Past Medical History Reviewed: Historical Data, Nursing Documentation, Vital Signs Vital Signs: Last Vital Signs Temp 98 F 05/25/18 10:05 Pulse 55 L 05/25/18 10:05 Resp 17 05/25/18 10:05 BP 139/79 05/25/18 10:05 Pulse Ox 99 05/25/18 10:05 - Medical History PMH: Depression, Diabetes, Hypercholesterolemia, Migraine Denies: Chronic Kidney Disease - Family History Family History: States: Unknown Family Hx - Social History Alcohol: None Drugs: Denies - Home Medications Home Medications: Ambulatory Orders Medication Instructions Recorded metFORMIN [glucOPHAGE] 1,000 mg PO BID 11/10/16 Amoxicillin [Amoxil 500 mg Cap] 500 mg PO Q12 cap 11/11/16 Citalopram [celeXA] 10 mg PO DAILY tab 11/11/16 Clarithromycin [Biaxin Filmtab] 500 mg PO Q12 tab 11/11/16 GlipiZIDE [Glucotrol] 5 mg PO ACB tab 11/11/16 Meclizine [Antivert] 12.5 mg PO DAILY PRN #15 tab 11/11/16 Acetaminophen [Tylenol] 650 mg PO Q6H PRN 10 Days #30 05/21/18 capsule Oseltamivir Phosphate [Tamiflu] 75 mg PO BID 5 Days #10 capsule 05/21/18 Oseltamivir Phosphate [Tamiflu] 75 mg PO BID 5 Days #10 capsule 05/21/18 Ondansetron ODT [Zofran ODT] 4 mg PO Q6H PRN #12 odt 05/25/18 - Allergies Allergies/Adverse Reactions: Allergies Allergy/AdvReac Type Severity Reaction Status Date / Time No Known Allergies Allergy Verified 05/21/18 09:55 Review of Systems ROS Statement: Except As Marked, All Systems Reviewed And Found Negative Constitutional: Positive for: Weakness (generalized weakness) ENT: Negative for: Throat Pain Cardiovascular: Positive for: Chest Pain (reproducible on palpation). Negative for: Palpitations, Edema Respiratory: Positive for: Cough (dry cough). Negative for: Shortness of Breath, SOB with Exertion Gastrointestinal: Positive for: Nausea, Vomiting (several episodes of vomiting since yesterday ), Abdominal Pain (diffuse abd discomfort on exam. pt reports pain felt only on palpation. otherwise denies pain. ) Genitourinary Female: Negative for: Dysuria Neurological: Positive for: Weakness Physical Exam - Reviewed Nursing Documentation Reviewed: Yes Vital Signs Reviewed: Yes - Physical Exam Appears: Positive for: Well, Non-toxic, No Acute Distress Head Exam: Positive for: ATRAUMATIC, NORMAL INSPECTION, NORMOCEPHALIC Skin: Positive for: Normal Color, Warm, Dry Eye Exam: Positive for: EOMI, Normal appearance, PERRL ENT: Positive for: Normal ENT Inspection, Other (dry mucous membranes. ) Neck: Positive for: Normal, Painless ROM, Supple Cardiovascular/Chest: Positive for: Regular Rate, Rhythm Respiratory: Positive for: CNT, Normal Breath Sounds Pulses-Radial (L): 2+ Pulses-Radial (R): 2+ Gastrointestinal/Abdominal: Positive for: Normal Exam, Soft Back: Positive for: Normal Inspection Extremity: Positive for: Normal ROM Neurological/Psych: Positive for: Awake, Alert, Normal Tone, Oriented - Laboratory Results Result Diagrams: 05/25/18 11:05 05/25/18 11:05 Interpretation Of Abn Labs: BUN: 24 CREA:0.6 GLUCOSE: 354 Urine dip results: Positive for: Leukocyte Esterase, Blood - ECG ECG: Positive for: Viewed By Me (AND DR. BLACK ) ECG Rhythm: Positive for: Sinus Bradycardia Rate: 56 O2 Sat by Pulse Oximetry: 99 Pulse Ox Interpretation: Normal - Progress ED Course And Treament: CBC CMP TROPONIN LIPASE UA EKG PEPCID IV ZOFRAN TORADOL 15MG IV 0.9 NS 1 LITER 1300: PT REEVALUED AT THIS TIME. PT STATES SHE FEEL BETTER. ABD PAIN AND NAUSEA SUBSIDED, PT STATES SHE FEEL HUNGRY NOW. IVF CONTINUE TO INFUSE. PO CHALLENGE AFTER IVF COMPLETE AND REPEAT ACCUCHECK DONE. ABD RE-EXAMINED, NEG FOR TENDERNESS THROUGHOUT. 1457: PT EATING LUNCH IN ROOM. PT TOLERATING WELL. PT STATES SHE FEELS MUCH BETTER. WAITING FOR UA REPEAT ACCUCHECK: 254 1557: PENDING UA RESULTS, PT TOLERATED PO, PT HAD USE AND MASH POTATOES IN ED. CLINICAL FINDINGS THUS FAR HAVE BEEN COMMUNICATED TO PT. PT WILL BE D/C HOME ON ZOFRAN PRN FOR NAUSEA AND VOMITING. PT ENCOURAGED TO STAY HYDRATED, FOLLOW-UP WITH PMD IN 2-3 DAYS. RETURN TO ED IF SYMPTOMS WORSEN. PT STATES SHE UNDERSTANDS. 1628: UA (NEG), RESULTS DISCUSSED WITH DR. BLACK, AGREES WITH D/C PLAN. Re-evaluation Time: 15:57 Condition: Re-examined Disposition - Clinical Impression Clinical Impression: Dehydration, Vomiting - Patient ED Disposition Is Patient to be Admitted: No Counseled Patient/Family Regarding: Diagnosis, Need For Followup, Rx Given - Disposition Referrals: Ilana March MD [Staff Provider] - Disposition: Routine/Home Disposition Time: 15:54 Condition: IMPROVED Additional Instructions: JACK A CHRISTY MEDICO PRIMARIO EN 2-3 DAYS. Prescriptions: Ondansetron ODT [Zofran ODT] 4 mg PO Q6H PRN #12 odt PRN Reason: Nausea/Vomiting Instructions: Dehydration, Adult (DC), Nausea and Vomiting, Adult (DC) Print Language: SALVADOREAN - POA Present On Arrival: None
[2018-05-25 11:20] LABS: BASO # 0.1 K/uL (0.0-0.2); EOS % 0.4 % (0.0-4.0); LYMPH # 2.5 K/uL (1.0-4.3); LYMPH % 22.8 % (20.0-40.0); MEAN CELL VOLUME 92.9 fl (81.0-99.0); MEAN CORPUSCULAR HEMOGLOBIN 31.4 pg (27.0-31.0); MEAN CORPUSCULAR HGB CONC 33.7 g/dL (33.0-37.0); MONO # 1.1 K/uL (0.0-0.8); MONO % 10.3 % (0.0-10.0); NEUT # 7.1 K/uL (1.8-7.0); NEUT % 65.5 % (50.0-75.0); NRBC % 0.2 % (0.0-0.0); RBC 4.14 Mil/uL (3.80-5.20); RED CELL DISTRIBUTION WIDTH 13.4 % (11.5-14.5); WHITE BLOOD COUNT 10.8 K/uL (4.8-10.8)
[2018-05-25 11:21] LABS: ALB/GLOB RATIO 1.1 (1.0-2.1); ALBUMIN 3.9 g/dL (3.5-5.0); ALT/SGPT 37 U/L (9-52); AST/SGOT 33 U/L (14-36); BLOOD UREA NITROGEN 24 mg/dl (7-17); CALCIUM 9.6 mg/dL (8.4-10.2); GFR NON-AFRICAN AMERICAN > 60; LIPASE 39 U/L (23-300)
[2018-05-25] MEDS: Sodium Chloride 0.9% 1,000 ML IV SCH ×4 (11:25→16:35)
[2018-05-25 16:10] VITALS: BP 100/67; RESP 16; TEMP 98.4
[2018-05-25 16:22] LABS: SQUAMOUS EPITHIAL 1 /hpf (0-5); URINE BILIRUBIN NEGATIVE (NEGATIVE); URINE BLOOD NEGATIVE (NEGATIVE); URINE CLARITY CLEAR (Clear); URINE COLOR YELLOW (YELLOW); URINE GLUCOSE (UA) >=500 mg/dL (NEGATIVE); URINE LEUKOCYTE ESTERASE NEG Leu/uL (Negative); URINE PROTEIN 100 mg/dL (NEGATIVE); URINE UROBILINOGEN 0.2-1.0 mg/dL (0.2-1.0)
[2018-05-25 16:28] VITALS: PULSE 56; O2SAT 99
--- NOTE | 2018-05-25 18:36 | CARD ---
APPROVED REPORT Date of service: 05/25/2018 EKG Measurement Heart [id number] <Conclusion> Sinus bradycardia Otherwise normal ECG
== END 2018-05-25 16:42 | disposition home or self-care (01) ==
LOC: H.ER 10:02
DX: E86.0 Dehydration (principal); R11.11 Vomiting without nausea; E11.9 Type 2 diabetes mellitus without complications; Z86.59 Personal history of other mental and behavioral disorders; Z79.84 Long term (current) use of oral hypoglycemic drugs
CPT/HCPCS: 80053; 81003; 82948; 83690; 84484; 85025; 93005; 96374; 96375; 99285; J1885; J2405; J7030